=== PATIENT | female | born 1995 | race Caucasian/White ===

== ENCOUNTER 2019-04-15 01:17 | Emergency (ER) | payer OTHER ==
[~2019-04-15] VITALS: Ht 165.1 cm; Wt 77.1 kg
[~2019-04-15 01:17] MED LIST: ULTRAM 50MG TAB50 MG PO
[2019-04-15 01:57] LABS: URINE BILIRUBIN NEGATIVE (Negative); URINE BLOOD NEGATIVE (Negative); URINE CLARITY CLEAR; URINE COLOR YELLOW; URINE GLUCOSE-RANDOM NEGATIVE (Negative); URINE KETONES NEGATIVE (Negative); URINE LEUKOCYTES-REFLEX NEGATIVE (Negative); URINE NITRITE-REFLEX NEGATIVE (Negative); URINE PROTEIN NEGATIVE (Negative); URINE SPECIFIC GRAVITY >= 1.030 (1.005-1.030); URINE UROBILINOGEN 0.2 E.U./dl (0.2-1.0)
[2019-04-15 03:04] LABS: ABSOLUTE EOSINOPHILS 0.4 thou/uL (0.0-0.7); ABSOLUTE LYMPHOCYTES 2.1 thou/uL (0.8-5.3); ABSOLUTE MONOCYTES 0.6 thou/uL (0.0-1.2); ABSOLUTE NEUTROPHILS 3.3 thou/uL (1.6-8.1); BASOPHILS 0.8 %; EOSINOPHILS 5.8 %; HEMATOCRIT 37.7 % (37.0-47.0); HEMOGLOBIN 12.6 gm/dL (12.0-15.0); MCH 27.3 pg (26.0-34.0); MCHC 33.3 g/dL (28.0-37.0); MCV 81.8 fL (80.0-100.0); MONOCYTES 9.8 %; MPV 8.1 fl. (7.2-11.1); NUCLEATED RBCS 0 /100WBC; PLATELET COUNT* 325 thou/uL (150-400); POLYS 50.6 %; RBC 4.61 mil/uL (4.20-5.00); RDW-CV 13.7 % (10.5-14.5); WBC 6.4 thou/uL (4.0-11.0)
[2019-04-15 03:06] LABS: CREATININE 0.7 mg/dL (0.6-1.3); POTASSIUM 3.9 mmol/L (3.5-5.1)
[2019-04-15 03:11] LABS: ALBUMIN 3.4 g/dL (3.4-5.0); TOTAL BILIRUBIN 0.3 mg/dL (<0.1-1.0); TOTAL PROTEIN 7.1 g/dL (6.4-8.2)
[2019-04-15] MEDS ORDERED: NORCO 5-325 TA1 EAC1 PO (03:32)
[2019-04-15 03:42] VITALS: BP 114/70
== END 2019-04-15 03:43 | disposition home or self-care (01) ==
LOC: M.ERS 01:17
PROVIDERS: Emergency Medicine
DX: N83.202 Unspecified ovarian cyst, left side (principal); F32.9 Major depressive disorder, single episode, unspecified

== ENCOUNTER 2019-07-20 20:29 | Emergency (ER) | payer OTHER ==
[~2019-07-20] VITALS: Ht 165.1 cm; Wt 93.0 kg
[~2019-07-20 20:29] MED LIST changes: +NORCO 5-325 TA1 EAC1 PO
[2019-07-20] MEDS ORDERED: LEVO-T50 MCG PO (20:50)
[2019-07-20 21:01] LABS: URINE BILIRUBIN NEGATIVE (Negative); URINE BLOOD NEGATIVE (Negative); URINE CLARITY CLEAR; URINE COLOR YELLOW; URINE GLUCOSE-RANDOM NEGATIVE (Negative); URINE KETONES NEGATIVE (Negative); URINE LEUKOCYTES-REFLEX TRACE (Negative); URINE NITRITE-REFLEX NEGATIVE (Negative); URINE PROTEIN NEGATIVE (Negative); URINE SPECIFIC GRAVITY >= 1.030 (1.005-1.030); URINE UROBILINOGEN 0.2 E.U./dl (0.2-1.0)
[2019-07-20 21:38] LABS: CASTS None Seen /LPF (None Seen); MUCUS >6 Heavy strn/LPF (None Seen); SQUAMOUS >10 Many /LPF (0-3)
[2019-07-20 21:39] LABS: CRYSTALS None Seen /LPF (None Seen); URINE RBC 0-2 Rare /HPF (0-2); URINE WBC-REFLEX 6-15 Few /HPF (0-5)
[2019-07-20 21:51] VITALS: BP 135/82
== END 2019-07-20 21:52 | disposition home or self-care (01) ==
LOC: M.ERS 20:29
PROVIDERS: Nurse Practitioner Family
DX: O26.891 Other specified pregnancy related conditions, first trimester (principal); R10.30 Lower abdominal pain, unspecified; Z3A.01 Less than 8 weeks gestation of pregnancy

== ENCOUNTER 2019-08-20 21:04 | Emergency (ER) | payer OTHER, MEDICAID ==
[~2019-08-20] VITALS: Ht 165.1 cm; Wt 95.3 kg
[~2019-08-20 21:04] MED LIST changes: +LEVO-T50 MCG PO
[2019-08-20] MEDS ORDERED: ENBRACE HR SOF1 EACH PO (21:23)
[2019-08-20 21:37] LABS: URINE BILIRUBIN NEGATIVE (Negative); URINE BLOOD NEGATIVE (Negative); URINE CLARITY CLEAR; URINE COLOR YELLOW; URINE GLUCOSE-RANDOM NEGATIVE (Negative); URINE KETONES NEGATIVE (Negative); URINE LEUKOCYTES-REFLEX 1+ (Negative); URINE NITRITE-REFLEX NEGATIVE (Negative); URINE PROTEIN NEGATIVE (Negative); URINE SPECIFIC GRAVITY >= 1.030 (1.005-1.030); URINE UROBILINOGEN 0.2 E.U./dl (0.2-1.0)
[2019-08-20 21:48] LABS: ABSOLUTE BASOPHILS 0.1 thou/uL (0.0-0.2); ABSOLUTE EOSINOPHILS 0.3 thou/uL (0.0-0.7); ABSOLUTE LYMPHOCYTES 1.9 thou/uL (0.8-5.3); ABSOLUTE MONOCYTES 0.6 thou/uL (0.0-1.2); ABSOLUTE NEUTROPHILS 4.4 thou/uL (1.6-8.1); EOSINOPHILS 3.6 %; HEMATOCRIT 36.2 % (37.0-47.0); HEMOGLOBIN 12.4 gm/dL (12.0-15.0); LYMPHOCYTES 25.8 %; MCH 28.3 pg (26.0-34.0); MCHC 34.2 g/dL (28.0-37.0); MCV 82.8 fL (80.0-100.0); MONOCYTES 8.4 %; MPV 8.4 fl. (7.2-11.1); NUCLEATED RBCS 0 /100WBC; PLATELET COUNT* 287 thou/uL (150-400); POLYS 61.2 %; RBC 4.38 mil/uL (4.20-5.00); RDW-CV 14.6 % (10.5-14.5); WBC 7.2 thou/uL (4.0-11.0)
[2019-08-20 21:59] LABS: CALCIUM 8.2 mg/dL (8.5-10.1); CREATININE 0.7 mg/dL (0.6-1.3); POTASSIUM 3.4 mmol/L (3.5-5.1)
[2019-08-20 22:05] LABS: ALBUMIN 3.1 g/dL (3.4-5.0); TOTAL BILIRUBIN 0.2 mg/dL (<0.1-1.0); TOTAL PROTEIN 6.8 g/dL (6.4-8.2)
[2019-08-20 22:12] LABS: CASTS None Seen /LPF (None Seen); MUCUS 0-3 Light strn/LPF (None Seen); SQUAMOUS >10 Many /LPF (0-3)
[2019-08-20 22:13] LABS: URINE WBC-REFLEX >25 Many /HPF (0-5)
[2019-08-20 22:14] LABS: BACTERIA-REFLEX >30 Many /HPF (None Seen); CRYSTALS None Seen /LPF (None Seen); URINE RBC 3-10 Few /HPF (0-2)
[2019-08-20] MEDS ORDERED: KEFLEX500 M2 PO (23:40)
[2019-08-20 23:48] VITALS: BP 106/53
== END 2019-08-20 23:49 | disposition home or self-care (01) ==
LOC: M.ERS 21:04
PROVIDERS: Emergency Medicine
DX: O23.41 Unspecified infection of urinary tract in pregnancy, first trimester (principal); O99.341 Other mental disorders complicating pregnancy, first trimester; Z3A.08 8 weeks gestation of pregnancy